=== PATIENT | female | born 1985 | race Caucasian/White ===

== ENCOUNTER 2025-01-11 20:58 | Emergency (ER) | payer MEDICAID, SELFPAY ==
[2025-01-11 21:20] VITALS: BP 129/85; PULSE 93; RESP 19; TEMP 36.6; O2SAT 97; BMI 18.3
[2025-01-11 21:38] LABS: MANUAL DIFF FLAG NO
--- OUTSIDE RECORDS SUMMARY | 2025-01-11 21:41 | XMS_ITS | Encounter Summary ---
Author Organization [facility] Address [address] [place] [address] Care Team Providers Care Shade Hanger Name Role Phone Martha Regalado MD Primary Care Provider [phone] Yahaira Munoz PHARMACEUTICAL COMPOUNDING SUPERVISOR Unavailable [phone] Unknown Pcp, Non Rmg Unavailable Unavailable Unknown Pcp, Non Rmg Primary Care Provider Unava ilable Ying Sandoval MD Primary Care Provider [phone] Encounter Details Date Type Department Care Team (Late st Contact Info) Description 05/26/2019 Orders Only [facility] Allergy [address] [place] [id number] Amado Macdonald MD [facility] Allergy, Asthma & Immunology [address] [place] [address] Social History Tobacco Use Types Packs/Day Years Used Date Smoking Tobacco: Never Smokeless Tobacco: Never Comments:denies Alcohol Use Standard Drinks/Week Comments Yes 0 (1 standard drink = 0.6 oz pur e alcohol) rare 1-2 per yr Comments No Sex and Gender Information Value Date Recorded Sex Assigned at Not on file Legal Sex Female 9:14 PM EST Gender Identity Not on file Sexual Orientation Not on file 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 Author Blood Pressure < 140/90 Blood Pressure 132/84(2023 2:27 PM EDT) Martha Wagoner MD Note: Above is your goal for blood pressure control. You may be able to prevent, reduce or eliminate the medication required for your blood pressure by regular measurement of your blood pressure at home, since home readings are often more reliable than measurements at the doctor? s office. You can also improve your blood pressure by getting regular exercise, keeping a normal weight, reducing your sodium/salt intake to 2000 mg/day, reducing caffeine and by limiting your alcohol intake. Men should limit consumption to no more than 2 drinks per day (beer, wine, or mixed drinks) and women should limit to one drink per day. Follow the DASH diet, a diet low in fat, cholesterol, red meat, and sweets. It emphasizes fruits, vegetables, and low-fat dairy foods. The DASH diet also includes whole-grain products, fish, poultry, and nuts. documented as of this encounter Procedures * Due to [place] [employer] law, this organization might not be sharing negative HIV tests. Procedure Name Priority Date/Time Associated Diagnosis Comments HELICOBACTER PYLORI AGDETECTION, EIA, STOOL Routine 05/26/2019 12:18 PM EDT Seasonal allergies documented in this encounter Results * Due to [place] [employer] law, this organization might not be sharing negative HIV tests. * HELICOBACTER PYLORI AGDETECTION, EIA, STOOL (05/26/2019 12:18 PM EDT) H. Pylori Antigen SEE NOTE [facility] Comment: ??HELICOBACTER PYLORI AG, EIA, STOOL ??MICRO NUMBER: ?[id number] ??TEST STATUS: ? FINAL ??SPECIMEN SOURCE: ?? NOT GIVEN ??SPECIMEN QUALITY: ??ADEQUATE ??RESULT: ?Not Detected ? Antimicrobials, proton pump inhibitors, and ? bismuth preparations inhibit H. pylori and ? ingestion up to two weeks prior to testing may ? cause false negative results. If clinically ? indicated the test should be repeated on a new ? specimen obtained two weeks after discontinuing ? treatment. 05/26/2019 12:1 8 PM EDT 05/26/2019 8:06 PM EDT Narrative Resulting Agency Comment [id number] us Amado Macdonald MD LABORATORY Final Resu lt [facility] [address] [place] [address] documented in this encounter Visit Diagnoses Diagnosis Seasonal allergies Allergic rhinitis, cause unspecified documented in this encounter Care Teams Shade Hanger Relationship Specialty Start Date End Date Martha Regalado MD PCP - General Internal Medicine 04/18/16 06/15/22 Yahaira Munoz NP [address] [place] [address] PCP - Backup PCP 10/09/21 05/16/22 Unknown Pcp, Non Rmg PCP - Backup PCP 05/17/22 09/02/22 Unknown Pcp, Non Rmg PCP - General 06/16/22 08/01/22 Ying Sandoval MD [address] [address] PCP - General Internal Medicine 08/02/22 OBGYN CARE TEAM RED tattoo and body artist 12/24/22 documented as of this encounter
--- OUTSIDE RECORDS SUMMARY | 2025-01-11 21:41 | XMS_ITS | Encounter Summary ---
Author Organization [facility] Address [address] [place] [address] Care Team Providers Care District [address] Bailiff Name Role Phone Martha Regalado MD Primary Care Provider [phone] Yahaira Munoz LATHE SETUP OPERATOR Unavailable [phone] Unknown Pcp, Non Rmg Unavailable Unavailable Unknown Pcp, Non Rmg Primary Care Provider Unava ilable Ying Sandoval MD Primary Care Provider [phone] Encounter Details Date Type Department Care Team (Late st Contact Info) Description 08/22/2021 Orders Only [facility] [address] [place] [address] Simi Rivas NP [address] [place] [address] Social History Tobacco Use Types Packs/Day Years [...] 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 Per LATHE SETUP OPERATOR Notes at visit: Return in 1-3 year for annual exam Cervical cancer screening Q 3 years unless otherwise indicated Patent to receive letter/[employer]isd[employer] message with results and follow up. Problem list updated. Letter sent via [employer]ingo. documented in this encounter Plan of Treatment Not on file documented as of this encounter Goals Goal Patient Goal Type Associated Problems Recent Progress Patient-Stated? Author Blood Pressure < 140/90 Blood Pressure 132/84(2023 2:27 PM EDT) No Martha Regalado MD Note: Above is your goal for [...] of this encounter Procedures * Due to [place] law, this organization might not be sharing negative HIV tests. Procedure Name Priority Date/Time Associated Diagnosis Comments THINPREP TIS PAP AND HPV RNA, HR E6/E7, TMA Routine 08/22/2021 3:01 PM EDT Encounter for gynecological examination without abnormal finding Screening for malignant neoplasm of cervix documented in this encounter Results * Due to [place] state law, this organization might not be sharing negative HIV tests. * THINPREP TIS PAP AND HPV RNA, HR E6/E7, TMA (08/22/2021 3:01 PM EDT) Clinical information None given [facility] Date last menstrual period 07/31/2021 [facility] Date of previous PAP smear 04/15/2018 [facility] Date of previous biopsy NONE GIVEN [facility] Specimen source (Cvx/Vag) Cervix [facility] Statement of Adequacy (Cvx/Vag) Satisfactory for evaluation. Endocervical/jorgensen sformation zone component present. [facility] Cytology, Pap Smear Negative for intraepithelial lesion or malignancy. [facility] Cytology study comment (Cvx/Vag) This Pap test has been evaluated with computer assisted technology. [facility] Desizing Machine Offbearer (Cvx/Vag) YP, CT(ASCP) CT screening location: [place] [address] [facility] COMMENT SEE NOTE [facility] Comment: EXPLANATORY NOTE: The Pap is a screening test for cervical cancer. It is not a diagnostic test and is subject to false negative and false positive results. It is most reliable when a satisfactory sample, regularly obtained, is submitted with relevant clinical findings and history, and when the Pap result is evaluated along with historic and current clinical information. HPV MRNA E6/E7 Not Detected Not Detected [facility] Comment: Methodology: Professor Of Physics-Mediated Amplification This assay detects E6/E7 viral messenger RNA (mRNA) from 14 high-risk HPV types (16,18,31,33,35,39,45,51,52,56,58,59,66,68). The analytical performance characteristics of this assay have been determined by [employer] ([employer]). The modifications have not been cleared or approved by the FDA. This assay has been validated pursuant to the CLIA regulations and is used for clinical purposes. For additional information, please refer to http://education.[employer]/faq/AZE506u4 (This link if provided for information/ educational purposes only.) Cervical 08/22/2021 3:01 PM EDT 08/22/2021 11:53 PM EDT Narrative Resulting Agency Comment [id number] us Simi Rivas NP PATHOLOGY-INTERFACED Final Resul t [facility] [address] [place] [address] documented in this encounter Visit Diagnoses Diagnosis Encounter for gynecological examination without abnormal finding Routine gynecological examination Screening for malignant neoplasm of cervix Screening for malignant neoplasm of the cervix documented in this encounter Care Teams District Court Bailiff Relationship Specialty Start Date End Date Martha Regalado MD PCP - General Internal Medicine 04/18/16 06/15/22 Yahaira Munoz NP [address] [place] [address] PCP - Backup PCP 10/09/21 05/16/22 Unknown Pcp, Non Rmg PCP - Backup PCP 05/17/22 09/02/22 Unknown Pcp, Non Rmg PCP - General 06/16/22 08/01/22 Ying Sandoval MD [address] [address] PCP - General Internal Medicine 08/02/22 OBGYN CARE TEAM RED enrollment services dean 12/24/22 documented as of this encounter
--- OUTSIDE RECORDS SUMMARY | 2025-01-11 21:41 | XMS_ITS | Encounter Summary ---
Author Organization [facility] Address [address] [place] [address] Care Team Providers Care Building Superintendent Name Role Phone Martha Regalado MD Primary Care Provider [phone] Yahaira Munoz BUILDING SERVICE WORKER Unavailable [phone] Unknown Pcp, Non Rmg Unavailable Unavailable Unknown Pcp, Non Rmg Primary Care Provider Unava ilable Ying Sandoval MD Primary Care Provider [phone] Reason for Visit * Reason Onset Date Comments E-prescribing Refill Request Appointment 12/23/2020 Encounter Details Date Type Department Care Team (Late st Contact Info) Description 12/23/2020 Refill [facility] [address] [place] [address] Martha Regalado MD [facility] [address] [facility] [address] [place] [address] E-prescribing Refill Request; Appointment Social History Tobacco Use Types Packs/Day Years [...] 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 PSS please schedule Faxed medication renewal request(s) for Micki Lewis 35 y.o. female received from pharmacy. Entered this pharmacy as preferred pharmacy for patient. Last CPE with this specialty: 06/19/2011 Last OV with this specialty: 03/17/2019 Next OV: No future appointments. Pertinent lab results: A short acting beta agonist is being ordered and no controller medication (inhaled steroid, antileukotriene agent) is active on the medication list. If a patient will be prescribed more than 2 refills per year,consider prescribing a controller medication if clinically appropriate. No labs suggested for any medication orders signed or pended in this encounter. Refresh if any orders changed. Because this patient has not had an appointment in this department specialty in the last year and does not have one scheduled in the next 30 days , limit prescription refills to a one month supply pending provider review and/or appointment scheduling. Allergies: Aromatic inhalants, Bee venom, and Diphtheria toxoid-containing vaccines BP Readings from Last 1 Encounters: 08/15/20 104/72 Patient Active Problem List Diagnosis Date Noted ??? Lichen sclerosus of female genitalia 04/21/2019 ??? White coat syndrome without hypertension 03/17/2019 24hr bp monitor normal average ??? Reactive airway disease without complication 04/01/2018 ??? Cervical cancer screening 07/06/201406/2011 nl pap 06/2014 nl pap, HPV NEG 03/2018 pap neg, hpv neg ??? History of irregular menstrual bleeding 06/29/2013 ??? Vaginismus 06/29/2013 ??? 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 Hyperlipidemia 08/16/2011 ??? Mole (skin) 06/19/2011 ??? Obesity 02/01/2011 Current Outpatient Medications on File Prior to Visit Medication Sig Dispense Refill ??? B Complex Vitamins (Vitamin B-Complex) Tab Take 1 tablet by mouth ??? Omeprazole (PriLOSEC) [address] capsule Take 20 mg by mouth ??? Multiple Vitamin (Multivitamins) capsule Take 1 capsule by mouth ??? Famotidine (PEPCID) 20 MG tablet Take 20 mg by mouth 2 (two) times a day 2 ??? Norethin Tomi-Eth Estrad-FE (MICROGESTIN ) 1.5-30 MG-MCG per tablet Take 1 tablet daily 84 tablet 4 ??? ALBUTEROL SULFATE (PROAIR HFA) 108 (90 Base) MCG/ACT Aero Soln USE 2 PUFFS BY MOUTH EVERY 4 TO 6 HOURS NEEDED FOR SHORTNESS OF BREATH 8.5 Inhaler 0 ??? raNITIdine HCl 150 MG Cap 1 CAPSULE AT BEDTIME 30 Cap ??? Cetirizine HCl 10 MG Cap 1 CAPSULE DAILY NEEDED ??? FLUTICASONE PROPIONATE, NASAL, (FLONASE ALLERGY RELIEF) 50 MCG/ACT Suspension Take 2 sprays each nostril qd ??? Betamethasone Valerate 0.1 % Ointment apply to affected area daily x 30 days, then decrease to 2-3/week 45 g 1 ??? Clobetasol Propionate 0.05 % Ointment Apply to vulva daily x 30 days then reduce to 2-3 times per week 60 g 11 documented in this encounter Plan of Treatment [...] and nuts. documented as of this encounter Visit Diagnoses Not on filedocumented in this encounter Care Teams Building Superintendent Relationship Specialty Start Date End Date Martha Regalado MD PCP - General Internal Medicine 04/18/16 06/15/22 Yahaira Munoz NP [address] [place] [address] PCP - Backup PCP 10/09/21 05/16/22 Unknown Pcp, Non Rmg PCP - Backup PCP 05/17/22 09/02/22 Unknown Pcp, Non Rmg PCP - General 06/16/22 08/01/22 Ying Sandoval MD [address] [address] PCP - General Internal Medicine 08/02/22 OBGYN CARE TEAM RED fruit or nut grower 12/24/22 documented as of this encounter
--- OUTSIDE RECORDS SUMMARY | 2025-01-11 21:42 | XMS_ITS | Encounter Summary ---
Author Organization [facility] Address [address] [place] [address] Care Team Providers Care Chief Operator Lock Tender Name Role Phone Martha Regalado MD Primary Care Provider [phone] JUDGE Unavailable Unknown Pcp, Non [facility] Unavailable Unavailable Unknown Pcp, Non [facility] Primary Care Provider Unava ilable Ying Sandoval MD Primary Care Provider [phone] Encounter Details Date Type Department Care Team (Late st Contact Info) Description 05/19/2019 Orders Only [facility] Allergy [address] [place] [id number] Amado Macdonald MD [facility] Allergy, Asthma & Immunology [address] [place] [address] Social History Tobacco Use Types Packs/Day Years [...] 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 Not on file Not on file Not on file documented as of this encounter Progress Notes * Amado Macdonald MD - 05/24/2019 3:28 PM EDT CBC is slightly abnormal with an elevated white count with elevated lymphocytes and monocytes couldbe consistent with a viral infection There is no evidence of allergies to grasses weeds cockroach no allergy to mouse cat dog mold No dust mite allergy no allergy to honey bee avoid face tiny yellow faced hornet yellowjacket and wasp tryptase levels normal documented in this encounter Plan of Treatment [...] of this encounter Procedures * Due to [place] state law, this organization might not be sharing negative HIV tests. Procedure Name Priority Date/Time Associated Diagnosis Comments CBC INCLUDES DIFFERENTIAL AND PLATELET COUNT Routine 05/19/2019 3:53 PM EDT Seasonal allergies ALLERGEN (IGE), CONV. RAST-GREG TEMPLE (672) Routine 05/19/2019 3:52 PM EDT Seasonal allergies SHEEP SORREL (W18) IGE Routine 9 3:52 PM EDT Seasonal allergies HELMINTHOSPORIUM HALODES(M8) IGE Routine 05/19/2019 3:52 PM EDT Seasonal allergies YOUNG'S QUARTER (GOOSE FOOT) (W10) IGE Routine 05/19/2019 3:52 PM EDT Seasonal allergies GIANT RAGWEED (TALL) (W3)IGE Routine 05/19/2019 3:52 PM EDT Seasonal allergies LATVIAN PLANTAIN (W9) IGE Routine 05/19/2019 3:52 PM EDT Seasonal allergies ELM (T8) IGE Routine 05/19/2019 3:52 PM EDT Seasonal allergies DOG DANDER (E5) IGE Routine 05/19/2019 3 :52 PM EDT Mild intermittent reactive airway disease without complication Seasonal allergies DERMATOPHAGOIDES PTERONYSSINUS (D1) IGE Routine 05/19/2019 3:52 PM EDT Seasonal allergies DERMATOPHAGOIDES FARINAE (D2) IGE Routine 05/19/2019 3:52 PM EDT Mild intermittent reactive airway disease without complication Seasonal allergies COTTONWOOD (T14) IGE Routine 05/19/2019 3:52 PM EDT Seasonal allergies COMMON RAGWEED (SHORT) (W1) IGE Routine 05/19/2019 3:52 PM EDT Seasonal allergies COCKROACH (I6) IGE Routine 05/19/2019 3: 52 PM EDT Mild intermittent reactive airway disease without complication Seasonal allergies COCKLEBUR (W13) IGE Routine 05/19/2019 3 :52 PM EDT Seasonal allergies BIRCH (T3) IGE Routine 05/19/2019 3:52 PM EDT Seasonal allergies BERMUDA GRASS (G2) IGE Routine 9 3:52 PM EDT Mild intermittent reactive airway disease without complication Seasonal allergies ASPERGILLUS FUMIGATUS(M3) IGE Routine 05/19/2019 3:52 PM EDT Seasonal allergies ALTERNARIA ALTERNATA (M6)IGE Routine 05/19/2019 3:52 PM EDT Seasonal allergies MAPLE (BOX ELDER) (T1) IGE Routine 05/19/2019 3:52 PM EDT Seasonal allergies OAK (T7) IGE Routine 05/19/2019 3:52 PM EDT Seasonal allergies HONEYBEE (I1) IGE Routine 05/19/2019 3:5 2 PM EDT Bee sting, accidental or unintentional, initial encounter YELLOW JACKET (I3) IGE Routine 9 3:52 PM EDT Bee sting, accidental or unintentional, initial encounter YELLOW HORNET (I5) IGE Routine 9 3:52 PM EDT Bee sting, accidental or unintentional, initial encounter WHITE FACE HORNET-D. MACULATA (I2) IGE Routine 05/19/2019 3:52 PM EDT Bee sting, accidental or unintentional, initial encounter WHITE FOREIGN (T15) IGE Routine 05/19/2019 3 :52 PM EDT Seasonal allergies GOVIND GRASS (G6) IGE Routine 9 3:52 PM EDT Mild intermittent reactive airway disease without complication Seasonal allergies PAPER WASP-POLISTES (I4)IGE Routine 05/19/2019 3:52 PM EDT Bee sting, accidental or unintentional, initial encounter MUCOR RACEMOSUS (M4) IGE Routine 019 3:52 PM EDT Seasonal allergies MOUSE EPITHELIA (E71)IGE Routine 019 3:52 PM EDT Mild intermittent reactive airway disease without complication Seasonal allergies PENICILLIUM NOTATUM (M1)IGE Routine 05/19/2019 3:52 PM EDT Seasonal allergies CAT EPITHELIUM ANDDANDER (E1) IGE Routine 05/19/2019 3:52 PM EDT Mild intermittent reactive airway disease without complication Seasonal allergies ROUGH PIGWEED (W14) ALLERGEN, IGE Routine 05/19/2019 3:52 PM EDT Seasonal allergies TRYPTASE Routine 05/19/2019 3:52 PM EDT Bee sting, accidental or unintentional, initial encounter IGE, SERUM Routine 05/19/2019 3:52 PM EDT Seasonal allergies documented in this encounter Results * Due to [place] state law, this organization might not be sharing negative HIV tests. * (ABNORMAL) CBC INCLUDES DIFFERENTIAL AND PLATELET COUNT (05/19/2019 3:53 PM EDT) WBC 14.0(H) 3.8 - 10.8 K/uL [facility] Neutrophils # 7.8 1.5 - 7.8 K/uL [facility] Immature Granulocytes # 0.0 0.0 - 0.1 K/uL [facility] Lymphocytes # 4.8(H) 0.9 - 3.9 K/uL [facility] Monocytes # 1.2(H) 0.2 - 1.0 K/uL [facility] Eosinophils # 0.2 0.0 - 0.5 K/uL [facility] Basophils # 0.0 0.0 - 0.2 K/uL [facility] Neutrophils % 55.4 % [facility] Immature Granulocytes % 0.30 % [facility] Lymphocytes % 34.4 % [facility] Monocytes % 8.3 % [facility] Eosinophils % 1.4 % [facility] Basophils % 0.2 % [facility] RBC 4.58 3.80 - 5.10 M/uL [facility] Hemoglobin 12.9 11.7 - 15.5 g/dL [facility] Hematocrit 38.1 35.0 - 45.0 % [facility] MCV 83.2 80.0 - 100.0 fl [facility] MCH 28.2 27.0 - 33.0 pg [facility] MCHC 33.9 32.0 - 36.0 g/dL [facility] RDW 13.6 11.0 - 15.0 % [facility] PLT 454(H) 140 - 400 K/uL [facility] 05/19/2019 3:53 PM EDT 05/19/2019 3:53 PM EDT Narrative [facility] - 05/19/2019 4:25 PM EDT non fasting Patient's primary care provider is: ??N/A Testing performed at: [facility], [address] [place] [address], [id number], Custom Studio Coordinator: Erwin Sanford MD us Amado Macdonald MD LAB SAME DAY RESULT Final Result Performing Organization Address [facility] Co de Phone Number [address] [address] DIRECTOR Erwin Sanford MD * TRYPTASE (05/19/2019 3:52 PM EDT) Tryptase 4.8 <11.0 mcg/L [facility] Comment: The Tryptase test, fluorescent enzyme immunoassay (FEIA), measures both the Alpha and Beta forms of Tryptase. Measuring both forms of Tryptase increases sensitivity for the diagnosis of mastocytosis, and mast cell degranulation as a cause of anaphylaxis. 05/19/2019 3:52 PM EDT 05/20/2019 2:03 AM EDT Narrative Resulting Agency Comment [id number] us Amado Macdonald MD LABORATORY Final Resu lt [facility] [address] [place] [id number] * YELLOW JACKET (I3) IGE (05/19/2019 3:52 PM EDT) Yellow Jacket (I3) IgE <0.10 kU/L [facility] Yellow Jacket (I3) Class 0 [facility] 05/19/2019 3:52 PM EDT 05/20/2019 2:03 AM EDT Narrative Resulting Agency Comment [id number] Amado Macdonald MD LABORATORY Final Resu lt Performing Organization Address [facility] Co de Phone Number [facility] [address] [place] [address] * YELLOW HORNET (I5) IGE (05/19/2019 3:52 PM EDT) Yellow Hornet (I5) IgE <0.10 kU/L [facility] Yellow Hornet (I5) Class 0 [facility] 05/19/2019 3:52 PM EDT 05/20/2019 2:03 AM EDT Narrative Resulting Agency Comment [id number] Amado Macdonald MD LABORATORY Final Resu lt Performing Organization Address [facility] Co de Phone Number [facility] [address] [place] [address] * WHITE FACE HORNET-D. MACULATA (I2) IGE (05/19/2019 3:52 PM EDT) White Faced Hornet (I2) IgE <0.10 kU/L [facility] White Faced Hornet Class 0 [facility] 05/19/2019 3:52 PM EDT 05/20/2019 2:03 AM EDT Narrative Resulting Agency Comment [id number] Amado Macdonald MD LABORATORY Final Resu lt Performing Organization Address City/[facility] Co de Phone Number [facility] [address] [place] [address] * PAPER WASP-POLISTES (I4)IGE (05/19/2019 3:52 PM EDT) Paper Wasp-Polistes (I4) IgE <0.10 kU/L [facility] Paper Wasp-Polistes (I4) Class 0 [facility] 05/19/2019 3:52 PM EDT 05/20/2019 2:03 AM EDT Narrative Resulting Agency Comment [id number] us Amado Macdonald MD LABORATORY Final Resu lt Performing Organization Address [facility] Co de Phone Number [facility] [address] [place] [address] * HONEYBEE (I1) IGE (05/19/2019 3:52 PM EDT) Honey Bee (I1) IgE <0.10 kU/L [facility] Honey Bee (I1) Class 0 [facility] 05/19/2019 3:52 PM EDT 05/20/2019 2:03 AM EDT Narrative Resulting Agency Comment [id number] us Amado Macdonald MD LABORATORY Final Resu lt Performing Organization Address [facility] de Phone Number [facility] [address] [place] [address] * SHEEP SORREL (W18) IGE (05/19/2019 3:52 PM EDT) Sheep Perdido IgE <0.10 kU/L [facility] Sheep Perdido (W18) Class 0 [facility] 05/19/2019 3:52 PM EDT 05/20/2019 2:03 AM EDT Narrative Resulting Agency Comment [id number] Amado Macdonald MD LABORATORY Final Resu lt Performing Organization Address [facility] de Phone Number [facility] [address] [place] [address] * ROUGH PIGWEED (W14) ALLERGEN, IGE (05/19/2019 3:52 PM EDT) Rough Pigweed (W14) IgE <0.10 kU/L [facility] Rough Pigweed (W14) Class 0 [facility] 05/19/2019 3:52 PM EDT 05/20/2019 2:03 AM EDT Narrative Resulting Agency Comment [id number] Amado Macdonald MD LABORATORY Final Resu lt Performing Organization Address [facility] Co de Phone Number [facility] [address] [place] [address] * YOUNG'S QUARTER (GOOSE FOOT) (W10) IGE (05/19/2019 3:52 PM EDT) Young's Quarters (Goosefoot) (W10) IgE <0.10 kU/L [facility] Young's Quarters (Goosefoot) (W10) Class 0 [facility] 05/19/2019 3:52 PM EDT 05/20/2019 2:03 AM EDT Narrative Resulting Agency Comment [id number] us Amado Macdonald MD LABORATORY Final Resu lt Performing Organization Address [facility] Co de Phone Number [facility] [address] [place] [address] * COCKLEBUR (W13) IGE (05/19/2019 3:52 PM EDT) Cocklebur (W13) IgE <0.10 kU/L [facility] Cocklebur (W13) Class 0 [facility] 05/19/2019 3:52 PM EDT 05/20/2019 2:03 AM EDT Narrative Resulting Agency Comment [id number] us Amado Macdonald MD LABORATORY Final Resu lt Performing Organization Address [facility] Co de Phone Number [facility] [address] [place] [address] * GIANT RAGWEED (TALL) (W3)IGE (05/19/2019 3:52 PM EDT) Ragweed Giant IgE <0.10 kU/L [facility] Giant Ragweed (Tall) (W3) Class 0 [facility] 05/19/2019 3:52 PM EDT 05/20/2019 2:03 AM EDT Narrative Resulting Agency Comment [id number] us Amado Macdonald MD LABORATORY Final Resu lt Performing Organization Address [facility] Co de Phone Number [facility] [address] [place] [address] * LATVIAN PLANTAIN (W9) IGE (05/19/2019 3:52 PM EDT) Haitian Plantain (W9) IgE <0.10 kU/L [facility] Haitian Plantain (W9) Class 0 [facility] 05/19/2019 3:52 PM EDT 05/20/2019 2:03 AM EDT Narrative Resulting Agency Comment [id number] us Amado Macdonald MD LABORATORY Final Resu lt [facility] [address] [place] [address] * COMMON RAGWEED (SHORT) (W1) IGE (05/19/2019 3:52 PM EDT) Common Ragweed (Short)(W1) IgE <0.10 kU/L [facility] Common Ragweed (Short)(W1) Class 0 [facility] 05/19/2019 3:52 PM EDT 05/20/2019 2:03 AM EDT Narrative Resulting Agency Comment [id number] us Amado Macdonald MD LABORATORY Final Resu lt Performing Organization Address [facility] Co de Phone Number [facility] [address] [place] [address] * WHITE FOREIGN (T15) IGE (05/19/2019 3:52 PM EDT) White Foreign (T15) IgE <0.10 kU/L [facility] White Foreign (T15) Class 0 [facility] 05/19/2019 3:52 PM EDT 05/20/2019 2:03 AM EDT Narrative Resulting Agency Comment [id number] us Amado Macdonald MD LABORATORY Final Resu lt Performing Organization Address [facility] Co de Phone Number [facility] [address] [place] [address] * OAK (T7) IGE (05/19/2019 3:52 PM EDT) Lolo (T7) IgE <0.10 kU/L [facility] Lolo (T7) Class 0 [facility] 05/19/2019 3:52 PM EDT 05/20/2019 2:03 AM EDT Narrative Resulting Agency Comment [id number] Amado Macdonald MD LABORATORY Final Resu lt Performing Organization Address [facility] Co de Phone Number [facility] [address] [place] [address] * MAPLE (BOX ELDER) (T1) IGE (05/19/2019 3:52 PM EDT) Maple (Cibola) (T1) IgE <0.10 kU/L [facility] Maple (Cibola) (T1) Class 0 [facility] 05/19/2019 3:52 PM EDT 05/20/2019 2:03 AM EDT Narrative Resulting Agency Comment [id number] Amado Macdonald MD LABORATORY Final Resu lt Performing Organization Address [facility] de Phone Number [facility] [address] [place] [address] * ALLERGEN (IGE), CONV. RAST-GREG TEMPLE (672) (05/19/2019 3:52 PM EDT) [facility] IgE <0.35 <0.35 kU/L [facility] Class 0 [facility] Comment: This conventional EIA uses allergen-coated discs from several suppliers and an enzyme-labeled anti-IgE. CLASS INTERPRETATION: <0.35 kU/L=0, Below Detection; 0.35-0.69 kU/L= 1, Low Positive; 0.70-3.49 kU/L= 2, Moderate Positive; 3.50-17.49 kU/L= 3, Positive; 17.50-49.99 kU/L= 4, Strong Positive; 50.00-99.99 kU/L= 5, Very Strong Positive; >99.99 kU/L= 6, Very Strong Positive *This test was developed and its performance characteristics determined by [employer] It has not been cleared or approved by the U.S. Food and Drug Administration. 05/19/2019 3:52 PM EDT 05/20/2019 2:03 AM EDT Narrative Resulting Agency Comment [id number] us Amado Macdonald MD LABORATORY Final Resu lt Performing Organization Address [facility] Co de Phone Number [facility] [address] [place] [address] * ELM (T8) IGE (05/19/2019 3:52 PM EDT) Elm (T8) IgE <0.10 kU/L [facility] Elm (T8) Class 0 [facility] 05/19/2019 3:52 PM EDT 05/20/2019 2:03 AM EDT Narrative Resulting Agency Comment [id number] us Amado Macdonald MD LABORATORY Final Resu lt Performing Organization Address [facility] de Phone Number [facility] [address] [place] [address] * COTTONWOOD (T14) IGE (05/19/2019 3:52 PM EDT) Norton (T14) IgE <0.10 kU/L [facility] Norton (T14) Class 0 [facility] 05/19/2019 3:52 PM EDT 05/20/2019 2:03 AM EDT Narrative Resulting Agency Comment [id number] us Amado Macdonald MD LABORATORY Final Resu lt Performing Organization Address [facility] Co de Phone Number [facility] [address] [place] [address] * BIRCH (T3) IGE (05/19/2019 3:52 PM EDT) Birch (T3) IgE <0.10 kU/L [facility] Birch (T3) Class 0 [facility] 05/19/2019 3:52 PM EDT 05/20/2019 2:03 AM EDT Narrative Resulting Agency Comment [id number] us Amado Macdonald MD LABORATORY Final Resu lt Performing Organization Address City/[facility]/ZIP Co de Phone Number [facility] [address] [place] [address] * PENICILLIUM NOTATUM (M1)IGE (05/19/2019 3:52 PM EDT) Penicillium Notatum (M1) IgE <0.10 kU/L [facility] Penicillium Notatum (M1) Class 0 [facility] 05/19/2019 3:52 PM EDT 05/20/2019 2:03 AM EDT Narrative Resulting Agency Comment [id number] us Amado Macdonald MD LABORATORY Final Resu lt Performing Organization Address [facility] Co de Phone Number [facility] [address] [place] [address] * MUCOR RACEMOSUS (M4) IGE (05/19/2019 3:52 PM EDT) Mucor Racemosus (M4) IgE <0.10 kU/L [facility] Mucor Racemosus (M4) Class 0 [facility] 05/19/2019 3:52 PM EDT 05/20/2019 2:03 AM EDT Narrative Resulting Agency Comment [id number] us Amado Macdonald MD LABORATORY Final Resu lt Performing Organization Address [facility] Co de Phone Number [facility] [address] [place] [address] * HELMINTHOSPORIUM HALODES(M8) IGE (05/19/2019 3:52 PM EDT) Helminthosporium Halodes(M8) IgE <0.10 kU/L [facility] Helminthosporium Halodes(M8) Class 0 [facility] 05/19/2019 3:52 PM EDT 05/20/2019 2:03 AM EDT Narrative Resulting Agency Comment [id number] us Amado Macdonald MD LABORATORY Final Resu lt Performing Organization Address [facility] Co de Phone Number [facility] [address] [place] [address] * ASPERGILLUS FUMIGATUS(M3) IGE (05/19/2019 3:52 PM EDT) Aspergillus Fumigatus (M3) IgE <0.10 kU/L [facility] Aspergillus Fumigatus(M3) Class 0 [facility] 05/19/2019 3:52 PM EDT 05/20/2019 2:03 AM EDT Narrative Resulting Agency Comment [id number] us Amado Macdonald MD LABORATORY Final Resu lt [facility] [address] [place] [address] * ALTERNARIA ALTERNATA (M6)IGE (05/19/2019 3:52 PM EDT) Alternaria Alternata (M6) IgE <0.10 kU/L [facility] Alternaria Alternata (M6) Class 0 [facility] 05/19/2019 3:52 PM EDT 05/20/2019 2:03 AM EDT Narrative Resulting Agency Comment [id number] us Amado Macdonald MD LABORATORY Final Resu lt Performing Organization Address [facility] Co de Phone Number [facility] [address] [place] [address] * DERMATOPHAGOIDES PTERONYSSINUS (D1)IGE (05/19/2019 3:52 PM EDT) Dermatophagoidespteronyssinu s (D1) IgE <0.10 kU/L [facility] Dermatophagoides pteronyssin us (D1) Class 0 [facility] 05/19/2019 3:52 PM EDT 05/20/2019 2:03 AM EDT Narrative Resulting Agency Comment [id number] us Amado Macdonlad MD LABORATORY Final Resu lt Performing Organization Address [facility] Co de Phone Number [facility] [address] [place] [address] * DERMATOPHAGOIDES FARINAE (D2) IGE (05/19/2019 3:52 PM EDT) Dermatophagoides Farinae(D2) IgE <0.10 kU/L [facility] Dermatophagoides Farinae(D2) Class 0 [facility] 05/19/2019 3:52 PM EDT 05/20/2019 2:03 AM EDT Narrative Resulting Agency Comment [id number] us Amado Macdonald MD LABORATORY Final Resu lt [facility] [address] [place] [address] * COCKROACH (I6) IGE (05/19/2019 3:52 PM EDT) Reference lab test reference range See Below [facility] Comment: Specific ?Level of Allergen IGE Class ?kU/L ? Specific IGE Antibody ----- ? --------- ?0 ?<0.10 ? Absent/Undetectable ??0/1 ?0.10-0.34 ? Very Low Level ??1 ?0.35-0.69 ? Low Level ??2 ?0.70-3.49 ? Moderate Level ??3 ?3.50-17.4 ? High Level ??4 ?17.5-49.9 ? Very High Level ??5 ?50-100 ?Very High Level ??6 ?>100 ?Very High Level The clinical relevance of allergen results of 0.10-0.34 kU/L are undetermined and intended for specialist use. Allergens denoted with a include results using one or more analyte specific reagents. In those cases, the test was developed and its analytical performance characteristics have been determined by [employer]. It has not been cleared or approved by the U.S. Food and Drug Administration. This assay has been validated pursuant to the CLIA regulations and is used for clinical purposes. Cockroach (I6) IgE <0.10 kU/L Q [facility] Cockroach (I6) Class 0 [facility] 05/19/2019 3:52 PM EDT 05/20/2019 2:03 AM EDT Narrative Resulting Agency Comment [id number] Amado Macdonald MD LABORATORY Final Resu lt Performing Organization Address [facility] Co de Phone Number [facility] [address] [place] [address] * MOUSE EPITHELIA (E71)IGE (05/19/2019 3:52 PM EDT) Mouse Epithelia (E71) IgE <0.10 kU/L [facility] Mouse Epithelia (E71) Class 0 [facility] 05/19/2019 3:52 PM EDT 05/20/2019 2:03 AM EDT Narrative Resulting Agency Comment [id number] Amado Macdonald MD LABORATORY Final Resu lt Performing Organization Address [facility] Co de Phone Number [facility] [address] [place] [address] * DOG DANDER (E5) IGE (05/19/2019 3:52 PM EDT) Dog Dander (E5) IgE <0.10 kU/L [facility] Dog Dander (E5) Class 0 [facility] 05/19/2019 3:52 PM EDT 05/20/2019 2:03 AM EDT Narrative Resulting Agency Comment [id number] us Amado Macdonald MD LABORATORY Final Resu lt [facility] [address] [place] [address] * CAT EPITHELIUM ANDDANDER (E1) IGE (05/19/2019 3:52 PM EDT) Cat Dander (E1) IgE <0.10 kU/L [facility] Cat Dander (E1) Class 0 [facility] 05/19/2019 3:52 PM EDT 05/20/2019 2:03 AM EDT Narrative Resulting Agency Comment [id number] us Amado Macdonald MD LABORATORY Final Resu lt Performing Organization Address [facility] Co de Phone Number [facility] [address] [place] [address] * BERMUDA GRASS (G2) IGE (05/19/2019 3:52 PM EDT) Bermuda Grass (G2) IgE <0.10 kU/L [facility] Bermuda Grass (G2) Class 0 [facility] 05/19/2019 3:52 PM EDT 05/20/2019 2:03 AM EDT Narrative Resulting Agency Comment [id number] us Amado Macdonald MD LABORATORY Final Resu lt Performing Organization Address [facility] Co de Phone Number [facility] [address] [place] [address] * GOVIND GRASS (G6) IGE (05/19/2019 3:52 PM EDT) Govind Grass (G6) IgE <0.10 kU/L [facility] Govind Grass (G6) Class 0 [facility] 05/19/2019 3:52 PM EDT 05/20/2019 2:03 AM EDT Narrative Resulting Agency Comment [id number] us Amado Macdonald MD LABORATORY Final Resu lt Performing Organization Address City/[facility]/ZIP Co de Phone Number [facility] [address] [place] [address] * IGE, SERUM (05/19/2019 3:52 PM EDT) IgE 3 <RU=767 kU/L [facility] 05/19/2019 3:52 PM EDT 05/20/2019 2:03 AM EDT Narrative Resulting Agency Comment [id number] us Amado Macdonald MD LABORATORY Final Resu lt Performing Organization Address City/State/[facility] Co de Phone Number [facility] [address] [place] [address] documented in this encounter Visit Diagnoses Diagnosis Seasonal allergies Allergic rhinitis, cause unspecified Mild intermittent reactive airway disease without complication (HHS) Bee sting, accidental or unintentional, initial encounter documented in this encounter Care Teams Chief Operator Lock Tender Relationship Specialty Start Date End Date Martha Regalado MD PCP - General Internal Medicine 04/18/16 06/15/22 Yahaira Munoz NP [address] [place] [id number] PCP - Backup PCP 10/09/21 05/16/22 Unknown Pcp, Non Rmg PCP - Backup PCP 05/17/22 09/02/22 Unknown Pcp, Non Rmg PCP - General 06/16/22 08/01/22 Ying Sandoval MD [address] [address] PCP - General Internal Medicine 08/02/22 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
--- OUTSIDE RECORDS SUMMARY | 2025-01-11 21:42 | XMS_ITS | Encounter Summary ---
Author Organization [facility] Address [address] [place] [address] Care Team Providers Care Certified Dialysis Technician Name Role Phone Unknown Pcp, Non Rmg Unavailable Unavailable Ying Sandoval MD Primary Care Provider [phone] Reason for Visit * Reason Comments E-prescribing Refill Request Encounter Details Date Type Department Care Team ([facility] st Contact Info) Description 08/31/2022 Refill [facility] SERVICE CREW LEADER [address] [facility] [address] [place] [address] Simi Rivas, MARILUZ [address] [place] [address] E-prescribing Refill Request Social History Tobacco Use Types Packs/Day Years [...] 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
--- OUTSIDE RECORDS SUMMARY | 2025-01-11 21:42 | XMS_ITS | Encounter Summary ---
Author Organization [facility] Address [address] [place] [address] Care Team Providers Care B2B Account Executive Name Role Phone Martha Regalado MD Primary Care Provider [phone] Yahaira Munoz DAY CARE AIDE Unavailable [phone] Unknown Pcp, Non Rmg Unavailable Unavailable Unknown Pcp, Non Rmg Primary Care Provider Unava ilable Ying Sandoval MD Primary Care Provider [phone] Encounter Details Date Type Department Care Team (Late st Contact Info) Description 04/15/2018 Orders Only [place] MINE CAR DISPATCHER [address] [place] [address] Simi Rivas NP [address] [place] [address] Social History Tobacco Use Types Packs/Day Years [...] 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 Problem list updated. Recall placed. Per provider notes at visit: Cervical cancer screening Q 3 years unless otherwise indicated Normal letter sent. documented in this encounter Plan of Treatment Not on file documented as of this encounter Procedures * Due to [facility] law, this organization might not be sharing negative HIV tests. Procedure Name Priority Date/Time Associated Diagnosis Comments THINPREP TIS PAP AND HPV RNA, HR E6/E7, TMA Routine 04/15/2018 4:31 PM EDT Family planning, BCP maintenance Encounter for gynecological examination without abnormal finding Surveillance for control, oral contraceptives Screening for malignant neoplasm of cervix documented in this encounter Results * Due to [facility] law, this organization might not be sharing negative HIV tests. * THINPREP TIS PAP AND HPV RNA, HR E6/E7, TMA (04/15/2018 4:31 PM EDT) Clinical information None given [facility] Date last menstrual period [id number] [facility] Date of previous PAP smear NONE GIVEN [facility] Date of previous biopsy NONE GIVEN [facility] Specimen source (Cvx/Vag) Cervix, Endocervix [facility] Statement of Adequacy (Cvx/Vag) Satisfactory for evaluation. Endocervical/jorgensen sformation zone component present. [facility] Cytology, Pap Smear Negative for intraepithelial lesion or malignancy. [facility] Cytology study comment (Cvx/Vag) This Pap test has been evaluated with computer assisted technology. [facility] Fitness And Wellness Coordinator (Cvx/Vag) CXP, CT(ASCP) CT screening location: [place] [address] [facility] COMMENT SEE NOTE [facility] Comment: EXPLANATORY NOTE: The Pap is [...] HPV MRNA E6/E7 Not Detected Not Detected [facility] Comment: This test was performed using the APTIMA HPV Assay ([employer] This assay detects E6/E7 viral messenger RNA (mRNA) from 14 high-risk HPV types (16,18,31,33,35,39,45,51,52,56,58,59,66,68). 04/15/2018 4:31 PM EDT 04/16/2018 6:03 AM EDT Narrative Resulting Agency Comment [id number] us Simi Rivas DAY CARE AIDE PATHOLOGY-INTERFACED Final Resul t [facility] [address] [place] [address] documented in this encounter Visit Diagnoses Diagnosis Family planning, BCP maintenance Surveillance of previously prescribed contraceptive pill Encounter for gynecological examination without abnormal finding Routine gynecological examination Surveillance for control, oral contraceptives Surveillance of previously prescribed contraceptive pill Screening for malignant neoplasm of cervix Screening for malignant neoplasm of the cervix documented in this encounter Care Teams B2B Account Executive Relationship Specialty Start Date End Date Martha Regalado MD PCP - General Internal Medicine 04/18/16 06/15/22 Yahaira Munoz NP [address] [place] [address] PCP - Backup PCP 10/09/21 05/16/22 Unknown Pcp, Non Rmg PCP - Backup PCP 05/17/22 09/02/22 Unknown Pcp, Non Rmg PCP - General 06/16/22 08/01/22 Ying Sandoval MD [address] [address] PCP - General Internal Medicine 08/02/22 OBGYN CARE TEAM RED country manager 12/24/22 documented as of this encounter
--- OUTSIDE RECORDS SUMMARY | 2025-01-11 21:42 | XMS_ITS | Clinical Summary ---
Author Organization [facility] Address [address] [place] [address] Care Team Providers Care Painter Interior Finish Name Role Phone Ying Sandoval MD Primary Care Provider [phone] Allergies Active Allergy Reactions Criticality Noted Date Comments Aromatic Inhalants 04/21/2019 Perfume, cologne, air fresheners, anything with floral scents causes difficulty breathing. Bee Venom 06/19/2011 Swelling, difficulty breathing Diphtheria Toxoid-Containing Vaccines 06/30/2010 TETANUS(DIPHTHERIA TOXIN PREPARATIONS); Tdap Medications * This document contains information received from the source organization and may not represent a complete record from that organization. Clobetasol Propionate 0.05 % OintmentIndicatio ns:Lichen sclerosus of female genitalia Apply to vulva daily x 30 days then reduce to 2-3 times per week 60 g 11 9 Active Cetirizine HCl 10 MG Cap 1 CAPSULE DAILY NEEDED Active FLUTICASONE PROPIONATE, NASAL, (FLONASE ALLERGY RELIEF) 50 MCG/ACT Suspension Take 2 sprays each nostril qd Active B Complex Vitamins (Vitamin B-Complex) Tab Take 1 tablet by mouth Active Omeprazole (PriLOSEC) [address] capsule Take 20 mg by mouth Active Multiple Vitamin (Multivitamins) capsule Take 1 capsule by mouth Active Famotidine (PEPCID) 20 MG tablet Take 20 mg by mouth 2 (two) times a day 2 9 Active ALBUTEROL SULFATE (PROVENTIL HFA;VENTOLIN HFA) 108 (90 Base) MCG/ACT inhaler Inhale two puffs - Every 4-6 hours as needed for wheezing or shortness of breath 1 each 2 Active Betamethasone Valerate (VALISONE) 0.1 % ointmentIndicatio ns:Lichen sclerosus of female genitalia apply to affected area 2-3/week 45 g 1 2 Active LISINOPRIL-HCTZ (PRINZIDE,ZESTORE TIC) 20-25 MG per tablet TAKE 1 TABLET BY MOUTH EVERY DAY 90 tablet 1 2 Active LISINOPRIL-HCTZ (PRINZIDE,ZESTORE TIC) 20-12.5 MG per tabletIndications :Primary hypertension Take 1 tablet by mouth 1 (one) time each day 2 Active amLODIPine Besylate (NORVASC) 2.5 MG tabletIndications :Primary hypertension Take 2.5 mg by mouth 1 (one) time each day 2 Active DULoxetine HCl (CYMBALTA) 20 MG capsule Take 20 mg by mouth 1 (one) time each day. 2 times a day 2 Active buPROPion HCl ER, XL, (WELLBUTRIN XL) 300 MG 24 hr tablet Take 300 mg by mouth 1 (one) time each day. 3 Active Fluticasone (FLOVENT HFA) 110 MCG/ACT inhaler PLEASE SEE ATTACHED FOR DETAILED DIRECTIONS 4 Active cloNIDine HCl (CATAPRES) 0.1 MG tablet Take 0.1 mg by mouth 2 (two) times a day for anxiety. 4 Active Breo Ellipta 200-25 MCG/ACT inhaler INHALE 1 PUFF BY MOUTH ONCE DAILY 4 Active traZODone (DESYREL) 50 MG tablet Take 50 mg by mouth 1 (one) time each day in the evening. 4 Active Hospital, Clinic, or Other Facility Administered Medication Ordered Dose Route Frequency Start Date End Date Status MEDROXYPROGEST DAVID (CONTRACEP) (DEPO-PROVERA) injection 150 mg 150 mg IM Every 3 months 08/07/2022 Active MEDROXYPROGEST DAVID (CONTRACEP) (DEPO-PROVERA) injection 150 mgIndications:Surveillan ce for Depo-Provera contraception 150 mg IM Every 3 months 10/23/2022 Active Active Problems Problem Noted Date Diagnosed Date Encounter for insertion of i ntrauterine contraceptive device 12/24/2022 Overview (12/24/2022): Mirena 12/24/2022 Major depressive disorder 08/07/2022 Anxiety 08/07/2022 Attention deficit disorder (ADD) 08/07/2022 Suicidal ideations 08/07/2022 Benign paroxysmal positional vertigo-PT 05/04/20 Lichen sclerosus of female genitalia 04/21/2019 White coat syndrome without hypertension 019 Overview (04/10/2022): 24hr bp monitor normal average Mar, 2022 Repeat 24 BP confirms hypertension: Average overall BP: 179/121 Average awake BP: 185/123 Average asleep BP: 153/109 Start lisinopril-HCTZ Reactive airway disease without complication (HH S) 04/01/2018 Cervical cancer screening 07/06/2014 Overview (08/24/2021): Negative history: 06/2011 nl pap 06/2014 nl pap, HPV NEG 03/2018 pap neg, hpv neg 08/22/2021 pap neg, hpv neg---plan: pap in 3 yrs unless otherwise indicated Vaginismus 06/29/2013 Psychogenic polydipsia 01/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 Overview (04/25/2015): Normal water deprivation test December 2012 (results scanned into record) Hyperlipidemia 08/16/2011 Mole (skin) 06/19/2011 Obesity 02/01/2011 Resolved Problems Problem Noted Date Diagnosed Date Resolved Date Family planning, BCP maintenance 06/29/2013 04/01/2018 History of irregular menstrual bleeding 06/29/2013 06/21/20232010 Pap smear w reflex scre ening: neg, repeat 3 yr 06/29/2013 07/06/2014 Polyuria 01/19/2013 01/21/2013 Polydipsia 02/01/2011 06/19/2011 Immunizations Name Administration Dates Next Due COVID-19, mRNA (Moderna Pre Fall 2022) Monovalent, 100 mcg/0.5 ml or 50 mcg/0.25 ml dose 11/16/2021,01/10/2021,12/13/2020 COVID-19, mRNA (Moderna Pre Fall 2022) bivalent, 25 mcg/0.25 ml (6 months - 11 years) or 50 mcg/0.5 ml (12+ years) 09/08/2022 HPV4 (Gardasil 4) 01/17/2010,09/16/2009,06/16/20 09 Hep B - 03/25/1996,09/25/1995,08/25/1995 Influenza,injectable,quad,Prsrv Fr 09/08/2022, MMR 06/25/1995,09/25/1985 Meningococcal,conjugate 04/25/2002 PPD/TST (Tuberculin Skin Test) 04/25/2002 Td (adult), adsorbed 07/26/1996 Tdap 05/04/2022 Tdap - 06/27/2010 Family History Medical History Relation Name Comments Bleeding Disorder Maternal grandmother st ates gets blood clots Depression Maternal grandmother Heart Disorder Maternal grandmother CAD/P VD, SD Pulmonary Disorder Maternal grandmother P E, CHF Thyroid Disorder Maternal grandmother Psych/Mental Health Mother jerson tobar Relation Name Status Comments Maternal grandmother Mother Social History Tobacco Use Types Packs/Day Years Used Date Smoking Tobacco: Never Smokeless Tobacco: Never Comments:denies Alcohol Use Standard Drinks/Week Comments Yes 0 (1 standard drink = 0.6 oz pur e alcohol) rare 1-2 per yr Intimate Partner Violence Answer Date R ecorded Fear of Current or Ex-Partner Not on file Emotionally Abused Not on file 07/28/2023 Physically Abused Not on file 07/28/2023 Sexually Abused Not on file 07/28/2023 Feel Safe at Home Not on file 07/28/2023 Comments No Sex and Gender Information Value Date Recorded Sex Assigned at Not on file Legal Sex Female 9:14 PM EST Gender Identity Not on file Sexual Orientation Not on file 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 on file Not on file Last Filed Vital Signs Vital Sign Reading Time Taken Comments Blood Pressure 132/84 06/23/2024 2:27 PM EDT Pulse 94 04/24/2022 8:51 AM EDT Temperature 36.1 ??C (97 ??F) 10/09/2021 10:06 AM EST Respiratory Rate 18 07/21/2019 1:59 PM EDT Oxygen Saturation 96% 10/09/2021 10:06 AM EST Inhaled Oxygen Concentration - - Weight 103 kg (228 lb) 06/23/2024 2:27 PM EDT Height 157.5 cm (5' 2 ) 06/21/2023 2:33 PM EDT Body Mass Index 41.7 06/21/2023 2:33 PM EDT Plan of Treatment Health Maintenance Due Date Last Done Comments Hepatitis C Screening 1985 Pneumococcal (1 of 2 - PCV) 2003 Mammogram/Breast Imaging 2024 COVID-19 Vaccine ( season) 2024 09/08/2022, 11/16/2021, 01/10/2021, Additional history exists Influenza (#1) 2024 09/08/2022, 09/13/2021 Pap Smear 08/22/2026 08/22/2021, 03/26, 07/06/2014, Additional history exists Zoster (Shingrix) (1 of 2) 2034 Hep B Completed 03/25/1996, 110 11/1994, 08/25/1995 Meningococcal ACWY Completed 04/25/2002 PPD Discontinued 04/25/2002 HPV Vaccine Completed 01/17/2010, 08/26, 06/16/2009 LDL Cholesterol Discontinued 06/27/2011, 06/27/2011 Upper Endoscopy Discontinued 06/09/2019 HPV Testing Discontinued 08/22/2021 Hep A Aged Out No longer eligi ble based on patient's age to complete this topic Hib Aged Out No longer eligi ble based on patient's age to complete this topic Goals Goal Patient Goal Type Associated Problems Recent Progress Patient-Stated? Author Blood Pressure < 140/90 Blood Pressure 132/84(2023 2:27 PM EDT) Martha Wagoenr MD Note: Above is your goal for [...] includes whole-grain products, fish, poultry, and nuts. Procedures * Due to [place] [employer] law, this organization might not be sharing negative HIV tests. Procedure Name Priority Date/Time Associated Diagnosis Comments THINPREP TIS PAP AND HPV RNA, HR E6/E7, TMA Routine 08/22/2021 3:01 PM EDT Encounter for gynecological examination without abnormal finding Screening for malignant neoplasm of cervix EGD (UPPER GI ENDOSCOPY) 06/09/2019 11:13 AM EDT LIPID PROFILE Routine 06/27/2011 8:37 AM EDT from Last 3 Months or Most Recently Relevant to Health Maintenance Results * Due to [place] law, this organization might not be sharing negative HIV tests. * THINPREP TIS PAP AND HPV RNA, HR E6/E7, TMA (08/22/2021 3:01 PM EDT) Clinical information None given [facility] Date last menstrual period 07/31/2021 [facility] Date of previous PAP smear 04/15/2018 [facility] Date of previous biopsy NONE GIVEN [facility] Specimen source (Cvx/Vag) Cervix [facility] Statement of Adequacy (Cvx/Vag) Satisfactory for evaluation. Endocervical/jorgensen sformation zone component present. [facility] Cytology, Pap Smear Negative for intraepithelial lesion or malignancy. [facility] Cytology study comment (Cvx/Vag) This Pap test has been evaluated with computer assisted technology. [facility] Pecan Gatherer (Cvx/Vag) YP, CT(ASCP) CT screening location: [place] [address] [facility] COMMENT SEE NOTE [facility] Comment: EXPLANATORY [...] HPV MRNA E6/E7 Not Detected Not Detected [facility] Comment: Methodology: Digital Sales Manager-Mediated Amplification This assay detects E6/E7 viral messenger RNA (mRNA) from 14 high-risk HPV types (16,18,31,33,35,39,45,51,52,56,58,59,66,68). The analytical performance characteristics of this assay have been determined by [employer]. The modifications have not been cleared or approved by the FDA. This assay has been validated pursuant to the CLIA regulations and is used for clinical purposes. For additional information, please refer to http://education.ExpoPromoter.EnerTrac/faq/UTI639h7 (This link if provided for information/ educational purposes only.) Cervical 08/22/2021 3:01 PM EDT 08/22/2021 11:53 PM EDT Narrative Resulting Agency Comment [id number] us Simi Rivas NP PATHOLOGY-INTERFACED Final Resul t Performing Organization Address City/State/[facility] Co de Phone Number [facility] [address] [place] [address] * EGD (UPPER GI ENDOSCOPY) (06/09/2019 11:13 AM EDT) Narrative Procedure Note Berry Simental MD - 06/09/2019 11:37 AM EDT Procedures signed by Berry Simental MD at 06/09/2019 11:37AM Author: Berry Simental MD Service: -- Author Type:Physician Filed: 06/09/2019 11:37 AM Date of Service: 06/09/2019 11:13 AMStatus: Signed Java Lead: Berry Simental MD (Physician) Procedure Orders 1. UPPER GI ENDOSCOPY [[id number]] ordered by Berry Simental MD at06/09/19 1113 Gastroenterology Patient Name: Micki Lewis Procedure Date: 06/09/2019 11:13AM Date of : 1985 Admit Type: Outpatient Age: 33 Room: [facility] Gender: Female Note Status: Finalized Attending MD: Berry Simental MD Procedure: Upper GI endoscopy Indications: Dysphagia, Heartburn Providers: Berry Simental MD Referring MD: Martha Regalado MD (Referring MD) Requesting Provider: Medicines: Propofol total dose 200 mg IV Complications: No immediate complications. Procedure: Pre-Anesthesia Assessment: - Prior to the procedure, a History and Physical was performed, and patient medications and allergies were reviewed. The patient is competent. The risks andbenefits of the procedure and the sedation options and riskswere discussed with the patient. All questions wereanswered and informed consent was obtained. Patientidentification and proposed procedure were verified by the physician,the nurse, the anesthesiologist and the avionics test technician in the procedure room. Mental Status Examination: alert and oriented. Airway Examination: normal oropharyngealairway and neck mobility. Respiratory Examination: clear to auscultation. CV Examination: normal. Prophylactic Antibiotics: The patient does not require prophylactic antibiotics. Prior Anticoagulants: The patient hastaken no previous anticoagulant or antiplatelet agents. ASA Grade Assessment: III - A patient with severe systemic disease. After reviewing the risks and benefits, the patient was deemed in satisfactory condition toundergo the procedure. The anesthesia plan was to usemonitored anesthesia care (MAC). Immediately prior toadministration of medications, the patient was re-assessed foradequacy to receive sedatives. The heart rate, respiratoryrate, oxygen saturations, blood pressure, adequacy ofpulmonary ventilation, and response to care were monitored throughout the procedure. The physical status of the patient was re-assessed after the procedure. After obtaining informed consent, the endoscope waspassed under direct vision. Throughout the procedure, the patient's blood pressure, pulse, and oxygensaturations were monitored continuously. The [id number] endoscope was introduced through the mouth, andadvanced to the second part of duodenum. The upper GI endoscopywas accomplished without difficulty. The patient toleratedthe procedure well. Findings: Normal mucosa was found in the entire esophagus. Biopsies wereobtained from the proximal and distal esophagus with cold forceps forhistology of suspected eosinophilic esophagitis. Estimated blood loss wasminimal. The Z-line was regular and was found 37 cm from the incisors. Diffuse mildly erythematous mucosa without bleeding was found in the gastric body and in the gastric antrum. Biopsies were taken with acold forceps for Helicobacter pylori testing. Estimated blood loss was minimal. The examined duodenum was normal. Biopsies were taken with a cold forceps for histology. Estimated blood loss was minimal. Impression: - Normal mucosa was found in the entire esophagus. Biopsied. - Z-line regular, 37 cm from the incisors. - Erythematous mucosa in the gastric body and antrum. Biopsied. - Normal examined duodenum. Biopsied. Recommendation: - [facility] The signs and symptoms of potential delayedcomplications were discussed with the patient. Return to normal activities tomorrow. Written discharge instructionswere provided to the patient. - Follow an antireflux regimen. - Continue present medications. - Return to GI clinic at the next availableappointment. Berry Simental MD 06/09/2019 11:37:27 AM This report has been signed electronically. Number of Addenda: 0 Note Initiated On: 06/09/2019 11:13 AM Berry Simental MD PROCEDURES Final Resul t * (ABNORMAL) LIPID PROFILE (06/27/2011 8:37 AM EDT) [facility] Signature Cholesterol 240(H) <200 mg/dL 06/27/2011 2:27 PM EDT [facility] Triglyceride 62 <150 mg/dL 06/27/2011 2:27 PM EDT [facility] Cholesterol.in HDL 62 >40 mg/dL 06/27/2011 2:27 PM EDT [facility] Comment: NCEP GUIDELINES Desireable >60 mg/dL Borderline 40-59 mg/dL ?? Undesirable <40 mg/dL LDL 166(H) <130 mg/dL 06/27/2011 2:27 PM EDT [facility] Chol/HDL Ratio 4 0 - 5 CALC 06/27/2011 2:27 PM EDT [facility] 06/27/2011 8:37 AM EDT 06/27/2011 8:37 AM EDT us Ember Butterfield MD LABORATORY Final Result [facility] from Last 3 Months or Most Recently Relevant to Health Maintenance Insurance [facility] Care Teams Painter Interior Finish Relationship Specialty Start Date End Date Ying Sandoval MD [address] [address] PCP - General Internal Medicine 08/02/22 OBGYN CARE TEAM RED agricultural research director 12/24/22
--- OUTSIDE RECORDS SUMMARY | 2025-01-11 21:42 | XMS_ITS | Encounter Summary ---
Author Organization [facility] Address [address] [place] [address] Care Team Providers Care Mat Tester Name Role Phone Martha Regalado MD Primary Care Provider [phone] Yahaira Munoz BLACKSMITH APPRENTICE Unavailable [phone] Unknown Pcp, Non [facility] Unavailable Unavailable Unknown Pcp, Non [facility] Primary Care Provider Unava ilable Ying Sandoval MD Primary Care Provider [phone] Encounter Details Date Type Department Care Team (Late st Contact Info) Description 05/04/2022 Orders Only [facility] [address] [place] [address] Yahaira Munoz, BLACKSMITH APPRENTICE [address] [place] [address] [id number] Social History Tobacco Use Types Packs/Day Years [...] 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 * Result Encounter Note - Yahaira Munoz NP - 05/04/2022 1:13 PM EDT Renal function and lytes stable on lisinopril-HCTZ. If not fasting, OK glucose. If fasting, recommend A1c to screen for diabetes. * Result Encounter Note - Ana Lilia Carranza RN - 05/04/2022 1:13 PM EDT Pt reports that she was not fasting. No further action needed. documented in this encounter Plan of Treatment [...] of this encounter Procedures * Due to [place] state law, this organization might not be sharing negative HIV tests. Procedure Name Priority Date/Time Associated Diagnosis Comments VENIPUNCTURE Routine 05/04/2022 1:16 PM EDT Primary hypertension documented in this encounter Results * Due to [place] state law, this organization might not be sharing negative HIV tests. * (ABNORMAL) BASIC METABOLIC PANEL WITH (GFR) (05/04/2022 1:16 PM EDT) Glucose 115(H) 65 - 99 mg/dl [facility] Urea Nitrogen Blood (BUN) 11 7 - 25 mg/dL [facility] Creatinine 0.78 0.50 - 1.16 mg/dL [facility] Sodium 137 135 - 146 mmo/L [facility] Potassium 4.0 3.5 - 5.3 mmol/L [facility] Chloride 100 98 - 107 mmo/L [facility] Carbon dioxide 24 23 - 33 mmol/L [facility] Calcium 9.8 8.5 - 10.4 mg/dL [facility] GFR 88 >60 ml/min [facility] Comment:If the patient is Af rican Nigerian, please multiply result by 1.210 05/04/2022 1:16 PM EDT 05/04/2022 1:16 PM EDT Narrative [facility] - 05/04/2022 2:18 PM EDT Patient's primary care provider is: ??N/A Testing performed at: [facility], [address] [place] [address], [id number], [employer]of[employer] Powder Mixer: Erwin Sanford MD Yahaira Munoz [employer] APPRENTICE [facility]OR[facility] Final Result Performing Organization Address City/State/[facility] Co de Phone Number [address] [address] DIRECTOR Erwin Sanford MD documented in this encounter Visit Diagnoses Diagnosis Primary hypertension Unspecified essential hypertension documented in this encounter Care Teams Mat Tester Relationship Specialty Start Date End Date Martha Regalado MD PCP - General Internal Medicine 04/18/16 06/15/22 Yahaira Munoz NP [address] [place] [address] PCP - Backup PCP 10/09/21 05/16/22 Unknown Pcp, Non [facility] PCP - Backup PCP 05/17/22 09/02/22 Unknown Pcp, Non [facility] PCP - General 06/16/22 08/01/22 Ying Sandoval MD [address] [address] PCP - General Internal Medicine 08/02/22 OBGYN CARE TEAM RED shelf stocker 12/24/22 documented as of this encounter
[2025-01-11 21:43] LABS: Basophils Percent Auto 0.3 % (0-2); Eosinophils Absolute Auto 0.1 X10*3/uL (0.0-0.4); Hematocrit 40.2 % (37.0-47.0); Hemoglobin 13.4 g/dl (12.0-16.0); Imm Gran Abs Auto 0.07 X10*3/uL (0.00-0.03); Imm Gran Pct Auto 0.8 % (0.0-0.4); Lymphocytes Absolute Auto 3.4 X10*3/uL (1.2-4.9); Lymphocytes Percent Auto 37.1 % (20-40); Mean Corpuscular HGB Conc 33.3 g/dl (31.0-35.0); Mean Corpuscular Hemoglobin 27.1 pg (27.0-33.0); Mean Corpuscular Volume 81.4 fL (80.0-98.0); Mean Platelet Volume 7.9 fL (9.4-12.3); Monocytes Absolute Auto 0.9 X10*3/uL (0.1-1.2); Monocytes Percent Auto 9.9 % (2-11); Neutrophils Absolute Auto 4.6 x10*3/uL (2.0-8.3); Neutrophils Percent Auto 50.9 % (45-73); Platelet Count 319 X10*3/uL (160-400); Red Blood Count 4.94 X10*6/uL (4.20-5.50); Red Cell Distribution Width 13.5 % (11.0-16.0); White Blood Count 9.1 X10*3/uL (4.8-10.8)
[2025-01-11 21:50] LABS: IDNOW Serial# 58CA691E; Strep A Nucleic Acid Negative (Negative)
[2025-01-11 21:53] LABS: Anion Gap 13 (12-20); Blood Urea Nitrogen 12 mg/dL (9-16); Calcium 9.3 mg/dL (8.4-10.2); Carbon Dioxide 25 mmol/L (22-29); Chloride 104 mmol/L (96-108); Creatinine Clr Calc Pharmacy 61.5; Estimated Glomerular Filt Rate > 60; Glucose Random 81 mg/dL (60-115); Potassium 4.1 mmol/L (3.3-5.1); Sodium 138 mmol/L (135-145)
[2025-01-11 22:17] LABS: Influenza A PCR POSITIVE (Negative); Influenza B PCR NEGATIVE (Negative); Resp Syncy Virus RNA Qual PCR NEGATIVE (Negative); SARS COV2 PCR INHOUSE NEGATIVE (Negative)
--- NOTE | 2025-01-12 00:51 | PC.NURSE ---
patient informed nurse she did not want to wait to be seen and left ED.
== END 2025-01-12 00:52 | disposition left against medical advice (07) ==
PROVIDERS: Emergency Provider Emergency Medicine
DX: R59.1 Generalized enlarged lymph nodes (principal); Z03.818 Encounter for observation for suspected exposure to other biological agents ruled out; Z79.899 Other long term (current) drug therapy
CPT/HCPCS: 0241U; 80048; 85025; 87651; 99281